=== PATIENT | male | born 1955 | race Caucasian/White ===

== ENCOUNTER 2019-04-21 07:24 | Day surgery (SDC) | payer BC ==
[~2019-04-21] VITALS: Ht 167.6 cm; Wt 85.5 kg
[~2019-04-21 07:24] MED LIST: (None)50 MG; AMLO10; ASPI81CH PO; ATOR40TA; Aspirin EC81 MG; CHOL10002 PO; Cardizem LA180 MG PO; Cialis5 MG; DILT180 PO; EQ GLUCOSAMINE1 EAC1 PO; ESCI10; FISH OIL 1,0001 EAC1 PO; GINKGO BILOBA120 MG PO; GLUCOSAMINE &1 EACH PO; Ginkgo Biloba120 MG PO; IBU800 MG PO; LOSARTAN-HCTZ1 EAC1 PO; LOSHYD100 PO; LUTEIN-ZEAXANT1 EACH PO; METAMUCIL660 GM PO; METO10; METO50ER; OMEG1CAP30 PO; OMEP10ER PO; OMEPRAZOLE MAGN20 MG PO; PANT40; PANT40 PO; PYRI100 PO; SIMV40 PO; St. John's Wor300 MG PO; UBID10; UBID100 PO; VITAMIN D31000 UNIT PO; Viagra100 MG; Vitamin B Comple1 EA PO; ZINC PO; ZOLP10
== END 2019-04-21 09:20 | disposition home or self-care (01) ==
LOC: ORSCSDS 07:24
PROVIDERS: Surgery
PROC: 0DJD8ZZ Inspection of Lower Intestinal Tract, Via Natural or Artificial Opening Endoscopic (ICD-10-PCS; principal; 2019-04-21 08:45)
DX: Z12.11 Encounter for screening for malignant neoplasm of colon (principal); Z86.010 Personal history of colon polyps; I10 Essential (primary) hypertension; J45.909 Unspecified asthma, uncomplicated; E78.5 Hyperlipidemia, unspecified; K21.9 Gastro-esophageal reflux disease without esophagitis; E66.01 Morbid (severe) obesity due to excess calories; Z68.32 Body mass index [BMI] 32.0-32.9, adult; Z79.82 Long term (current) use of aspirin; Z79.899 Other long term (current) drug therapy
CPT/HCPCS: J0330; J0461; J2405; J2704; J7120

== ENCOUNTER 2023-03-18 17:26 | Emergency (ER) | payer OTHER ==
[~2023-03-18] VITALS: Ht 170.2 cm; Wt 79.4 kg
[2023-03-18 18:42] LABS: BASOPHILS ABSOLUTE AUTO 0.02 K/mm3 (0.00-0.23); BASOPHILS PERCENT AUTO 0 % (0-2); EOSINOPHILS ABSOLUTE AUTO 0.07 K/mm3 (0.00-0.68); EOSINOPHILS PERCENT AUTO 1 % (0-6); Hematocrit 39.9 % (37.0-53.0); Hemoglobin 13.6 g/dL (13.5-17.5); IMMATURE GRAN ABSOLUTE AUTO 0.02 K/mm3 (0.00-0.10); IMMATURE GRAN PERCENT AUTO 0 % (0-1); LYMPHOCYTES ABSOLUTE AUTO 0.83 K/mm3 (0.84-5.20); LYMPHOCYTES PERCENT AUTO 11 % (21-46); MONOCYTES ABSOLUTE AUTO 0.56 K/mm3 (0.16-1.47); MONOCYTES PERCENT AUTO 7 % (4-13); Mean Corpuscular HGB 30.2 pg (26.0-34.0); Mean Corpuscular HGB Conc 34.1 g/dL (31.5-36.5); Mean Corpuscular Volume 89 fL (80-100); Mean Platelet Volume 10.5 fL (9.1-12.4); NEUTROPHILS ABSOLUTE AUTO 6.44 K/mm3 (1.96-9.15); NEUTROPHILS PERCENT AUTO 81 % (41-73); Platelet Count 319 K/mm3 (150-400); RDW Coefficient Variation 13.7 % (11.7-14.2); RDW Standard Deviation 44.6 fL (35.1-46.3); Red Blood Cell Count 4.51 M/mm3 (4.30-5.90); White Blood Cell Count 7.94 K/mm3 (4.00-11.30)
[2023-03-18 18:59] LABS: Albumin, Blood 4.1 g/dL (3.4-5.0); Albumin/Globulin Ratio 1.3 (0.8-1.8); Bilirubin, Total 0.4 mg/dL (0.1-1.0); Bun/Creatinine Ratio 14.4 (12.0-20.0); Calcium, Blood 9.2 mg/dL (8.5-10.1); Creatinine, Blood 1.11 mg/dL (0.60-1.20); Globulin, Blood 3.1 g/dL (2.2-4.0); Potassium, Blood 3.7 mmol/L (3.5-5.5); Total Protein, Blood 7.2 g/dL (6.4-8.2)
[2023-03-18 19:20] VITALS: BP 113/75
[2023-03-18] MEDS ORDERED: OXYC5 (20:36)
[2023-03-18] MEDS ORDERED: Cyclobenzaprine5 MG (20:37)
== END 2023-03-18 20:41 | disposition home or self-care (01) ==
LOC: ER 17:26
PROVIDERS: Physician Assistant
DX: R07.89 Other chest pain (principal); M25.511 Pain in right shoulder; Z88.8 Allergy status to other drugs, medicaments and biological substances; Z79.899 Other long term (current) drug therapy; Z79.82 Long term (current) use of aspirin
CPT/HCPCS: 71046; 73030; 80053; 84484; 85025; 93005; 93010; 96374; 99284-25; J1885

== ENCOUNTER 2024-04-19 12:38 | Day surgery (SDC) | payer OTHER ==
[~2024-04-19] VITALS: Ht 170.2 cm; Wt 85.3 kg
[~2024-04-19 12:38] MED LIST changes: +Cyclobenzaprine5 MG; +Lactated Ringer's 1,000 ML IV ONE; +OXYC5
[2024-04-19] MEDS ORDERED: METF500 (12:49)
[2024-04-19] MEDS ORDERED: COENZYME Q-1030 MG (12:49)
[2024-04-19] MEDS ORDERED: TADA10TA (12:50)
[2024-04-19] MEDS ORDERED: OLME20 (12:50)
[2024-04-19] MEDS ORDERED: propofoL 50 ML IV ONE ×2 (13:01→13:29)
[2024-04-19] MEDS ORDERED: Lactated Ringer's 1,000 ML IV ONE ×2 (13:01→13:12)
[2024-04-19 14:35] VITALS: BP 129/72
== END 2024-04-19 14:28 | disposition home or self-care (01) ==
LOC: ORSCSDS 12:38
PROVIDERS: Surgery
PROC: 0DBK8ZX Excision of Ascending Colon, Via Natural or Artificial Opening Endoscopic, Diagnostic (ICD-10-PCS; principal; 2024-04-19 13:45)
PROC: 0DB68ZX Excision of Stomach, Via Natural or Artificial Opening Endoscopic, Diagnostic (ICD-10-PCS; principal; 2024-04-19 13:45)
PROC: 0DBP8ZX Excision of Rectum, Via Natural or Artificial Opening Endoscopic, Diagnostic (ICD-10-PCS; principal; 2024-04-19 13:45)
DX: D50.9 Iron deficiency anemia, unspecified (principal); D12.2 Benign neoplasm of ascending colon; K62.1 Rectal polyp; K57.30 Diverticulosis of large intestine without perforation or abscess without bleeding; K64.4 Residual hemorrhoidal skin tags; K64.1 Second degree hemorrhoids; K21.9 Gastro-esophageal reflux disease without esophagitis; E78.00 Pure hypercholesterolemia, unspecified; I10 Essential (primary) hypertension; Z79.899 Other long term (current) drug therapy
CPT/HCPCS: 82947; 88305; 88342; J2704; J7120

== ENCOUNTER → 2025-07-13 | Outpatient (CLI) | payer OTHER ==
[~2025-07-13] MED LIST changes: +COENZYME Q-1030 MG; -Lactated Ringer's 1,000 ML IV ONE; +METF500; +OLME20; +TADA10TA
[2025-07-14 14:10] LABS: Stool Occult Bld Immuno 1 Negative (NEGATIVE)
== END ==
LOC: LAB SHORT 11:30 → LAB 11:30
PROVIDERS: Internal Medicine
DX: D50.9 Iron deficiency anemia, unspecified (principal)
CPT/HCPCS: 82274